=== PATIENT | male | born 1940 | race Caucasian/White ===

== ENCOUNTER → 2022-12-17 01:56 | Outpatient (CLI) | payer OTHER, SELFPAY ==
--- NOTE | 2022-12-17 | DI.CT_ITS ---
Exam(s) CT BRAIN NECK CTA EXAM: CT BRAIN NECK CTA CLINICAL HISTORY: TRANSIENT VISUAL LOSS,? TIA/STROKE. TECHNIQUE: Imaging Protocol: Axial CT angiography was performed with multi-slice acquisition and mu lti-planar and 3D reconstructions. CONTRAST MATERIAL: Intravenous: Omnipaque 350 Contrast volume: 85 ml COMPARISON: No exams were available for comparison FINDINGS: CT Head W/O and W contrast: Ventricles and Extra axial spaces: Normal in size and morphology for the patient's age. Hemorrhage: None. Cerebral parenchyma: Normal. Midline shift: None. Brainstem/Cerebellum: Normal. Calvarium: Normal. Visualized Paranasal sinuses/Mastoids: Clear. Soft Tissues: Unremarkable. Enhancement: Normal. CTA Brain W: Internal Carotid Arteries: Petrous: Normal. Cavernous: Normal. Cerebral: Normal. Middle Cerebral Arteries: Right: No aneurysm, occlusion or significant stenosis. Left: No aneurysm, occlusion or significant stenosis. Anterior Cerebral Arteries: Right: No aneurysm, occlusion or significant stenosis. Left: No aneurysm, occlusion or significant stenosis. Posterior cerebral Arteries: Right: No aneurysm, occlusion or significant stenosis. Left: No aneurysm, occlusion or significant stenosis. Vertebral Arteries: Right: No aneurysm, occlusion or significant stenosis. Left: No aneurysm, occlusion or significant stenosis. Basilar Artery: No aneurysm, occlusion or significant stenosis. CTA Neck W: Common Carotid: Right: No dissection, occlusion or significant stenosis. No significant plaque. Left: No dissection, occlusion or significant stenosis. Minimal plaque at the common carotid bulb. External Carotid: Right: No dissection, occlusion or significant stenosis. Left: No dissection, occlusion or significant stenosis. Internal Carotid: Right: No dissection, occlusion or significant stenosis. Tortuous distally. Left: No dissection, occlusion or significant stenosis. Tortuous distally. Vertebral Artery: Right: No dissection, occlusion or significant stenosis. Left: No dissection, occlusion or significant stenosis. Lung Apices: Normal. Bones: Degenerative disc changes and facet degenerative changes. Soft Tissues: Normal. IMPRESSION: 1. Normal CTA examination of the [place]. 2. Unremarkable CT Head. 3. CTA neck: Minimal plaque at the left common carotid bulb. No significant stenosis. No evidence o f of dissection. RADIATION DOSE DELIVERED: 2,322.97mGy.cm Total DLP DATA REPOSITORY: All CT scans at this facility are submitted to the National Radiology Data Registry (NRDR) Dose Index Registry (DIR) with the [employer] ([employer]). RADIATION OPTIMIZATION: All CT scans at this facility use at least one of these dose optimization te chniques: automated exposure control; mA and/or kV adjustment per patient size (includes targeted exa ms where dose is matched to clinical indication); or iterative reconstruction.
--- NOTE | 2022-12-17 12:32 | DI.RAD_ITS ---
Exam(s) XR SHOULDER RT COMPLETE 2+V EXAM: XR SHOULDER RT COMPLETE 2+V CLINICAL HISTORY: RT SHOULDER PAIN, M25.511. TECHNIQUE: 2D digital imaging was performed of the right shoulder. Three images were obtained. AP and Y views were obtained. COMPARISON: No exams were available for comparison FINDINGS: BONES: No acute fracture is present. No bony destructive lesion is seen. JOINTS: No dislocation present. There are degenerative changes seen at both the glenohumeral and acro mioclavicular joints. There is mild spurring at the undersurface of the acromion. SOFT TISSUE: Normal. IMPRESSION: Degenerative changes of the right shoulder. DATA REPOSITORY: RADIATION DOSE DELIVERED:
[2022-12-17] MEDS: Omnipaque 350 MG/ML 500 ML BTL-Imaging package IJ (12:36)
[2022-12-17] MEDS: Normal Saline - Diluent 50 ML VIAL IJ (12:36)
== END ==
PROVIDERS: Visit Provider Physician Assistant Medical
DX: M19.011 Primary osteoarthritis, right shoulder (principal); H53.123 Transient visual loss, bilateral
CPT/HCPCS: 70496; 70498; 73030

== ENCOUNTER 2023-08-05 14:58 | Emergency (ER) | payer OTHER, SELFPAY ==
[2023-08-05 15:03] VITALS: BP 142/51; PULSE 75; RESP 16; TEMP 36.8; O2SAT 97
--- NOTE | 2023-08-05 17:15 | DI.CT_ITS ---
Exam(s) CT ABDOMEN PELVIS W EXAM: CT ABDOMEN PELVIS W CLINICAL HISTORY: upper abd pain TECHNIQUE: Imaging Protocol: Axial computed tomography images with coronal and sagittal reformatted images were created and reviewed. CONTRAST MATERIAL: Intravenous: Omnipaque 350 Contrast volume:100 mL Oral: No COMPARISON: CT CT BRAIN NECK CTA from 12/17/2022 FINDINGS: ABDOMEN: Lung Bases: Normal where visualized. Liver: Normal density. There is a simple cyst in the left lobe of the liver. No suspicious hepatic m asses are seen. Portal, Superior Mesenteric, and Splenic Veins: Unremarkable. Gallbladder and Biliary Tract: Status post cholecystectomy. No significant biliary ductal dilatation . Pancreas: Normal density, no abnormal calcifications or inflammatory process. Spleen: Normal. Adrenals: No masses seen. Kidneys: Normal size, contour and axis. No radiodense stones or obstructive uropathy. There is a simp le right renal cysts. No follow-up is recommended. Abdominal Aorta: Abdominal portion non-dilated. Atherosclerotic calcification is present. Bowel: There is diverticulosis of the colon without evidence of acute diverticulitis. There is no ev idence of bowel obstruction or bowel wall thickening. No evidence of appendicitis. Peritoneal Cavity: No ascites, collection or mesenteric inflammatory response. No free air. Lymph Nodes: Within normal limits. Bones: Within normal limits for the patient's age. Soft Tissues: Unremarkable. PELVIS: Bladder: Symmetric distention, no gross wall thickening. Reproductive Organs: Prostate gland is mildly enlarged. Lymph Nodes: Within normal limits. Bones: Within normal limits for the patient's age. IMPRESSION: 1. No acute abdominal or pelvic process. 2. Colonic diverticulosis without evidence of acute diverticulitis. 3. Mildly enlarged prostate gland. 4. Status post cholecystectomy. RADIATION DOSE DELIVERED: 1,498.48mGy.cm Total DLP DATA REPOSITORY: All CT scans at this facility are submitted to the National Radiology Data Registry (NRDR) Dose Index Registry (DIR) with the [employer] (ACR). RADIATION OPTIMIZATION: All CT scans at this facility use at least one of these dose optimization te chniques: automated exposure control; mA and/or kV adjustment per patient size (includes targeted exa ms where dose is matched to clinical indication); or iterative reconstruction.
--- NOTE | 2023-08-05 17:35 | ED.GENADUL_ITS ---
Discharge Plan Disposition Patient Disposition: Home Condition: Good Discharge Details Clinical Impression: Intermittent upper abdominal pain Primary Care Provider: Unknown,Unknown ED Provider: Kacey Dougherty Home Meds and New Rx's Prescriptions: No Action losartan 100 MG tablet 100 mg PO DAILY furosemide 20 MG tablet 40 mg PO QAM omeprazole 40 MG capsule,delayed release(DR/EC) 40 mg PO DAILY calcium carbonate 500 mg calcium (1,250 mg) tablet,chewable 500 mg PO DAILY potassium chloride [Klor-Con 10] 10 mEq tablet extended release 10 meq PO TID finasteride [Proscar] 5 mg tablet 5 mg PO DAILY aspirin [Adult Aspirin Regimen] 81 mg tablet,delayed release (DR/EC) 81 mg PO DAILY rosuvastatin [Crestor] 20 mg tablet 20 mg PO DAILY albuterol 90 mcg/actuation aerosol 200 mcg inhalation Q6H PRN PRN Discharge Instructions Additional Instructions: Please call your primary care provider first thing in the morning to schedule follow-up appointment. Telehealth visit is okay. Your workup today was reassuring, all labs and abdominal CT reassuring. Continue taking all your medications as prescribed Return to emergency care if you develop new chest pain, shortness of breath, nausea/vomiting, abdominal pain, or if you are worried and need to be rechecked again immediately HPI General Date/Time Provider Initiated Documentation: 08/05/23 17:19 . HPI Narrative: Anmol is an 82-year-old male who [facility] who [facility] emergency department today for evaluation of upper abdominal pain. He reports that he had sudden sharp pain this morning when he sneezed, said it radiated from his left upper quadrant to his right upper quadrant. He says that this pain has been ongoing for some time, comes and goes every couple of days. He says it is worsened with sitting up or when he lays on his left side. He says he has mentioned this to his doctor before, but was told it was nothing important. He is worried because he has not had his yearly CT scans of his chest since last year, is worried something might be going on. He denies recent fever/chills, chest pain, shortness of breath, change in baseline cough, change in p.o. intake, acid reflux, change in bowel or bladder function. He does have a history of abdominal surgery, had gallbladder removed. Denies history of diabetes or significant digestive disorders. He says he has had colonoscopies and endoscopies in the past, no known acute findings. Related Data Home Medications Medication Instructions Recorded Confirmed furosemide 20 mg tablet 40 mg PO QAM 11/04/13 08/05/23 losartan 100 mg tablet 100 mg PO DAILY 11/04/13 08/05/23 omeprazole 40 mg capsule,delayed 40 mg PO DAILY 11/04/13 08/05/23 release albuterol 90 mcg/actuation aerosol 200 mcg inhalation Q6H PRN PRN 08/05/23 08/05/23 inhaler aspirin 81 mg tablet,delayed 81 mg PO DAILY 08/05/23 08/05/23 release (Adult Aspirin Regimen) calcium carbonate 500 mg PO DAILY 08/05/23 08/05/23 finasteride 5 mg tablet (Proscar) 5 mg PO DAILY 08/05/23 08/05/23 potassium chloride 10 mEq 10 meq PO TID 08/05/23 08/05/23 tablet,extended release (Klor-Con) rosuvastatin 20 mg tablet (Crestor) 20 mg PO DAILY 08/05/23 08/05/23 Allergies Allergy/AdvReac Type Severity Reaction Status Date / Time Sulfa (Sulfonamide Allergy Mild Skin Rash Unverified 08/05/23 18:20 Antibiotics) General Stated Complaint: Abd Prob EMILY: 3 Review of Systems Narrative: see HPI Exam Const General: cooperative, healthy appearing, comfortable, no acute distress, well developed and well groomed Nutritional Appearance: average body habitus Chest Chest: normal inspection of the chest, normal palpation of entire chest wall, no crepitus and no localized rib tenderness Resp Effort & Inspection: normal respiratory effort and able to speak in complete sentences Auscultation: clear to auscultation bilaterally Cardio Jugular venous pressure: no JVD Rate: regular rate Rhythm: regular rhythm GI Inspection: normal to inspection, no edema, non-distended and scar (RUQ) Palpation: soft, not rigid and nontender Auscultation: normal bowel sounds Skin General skin exam: no rashes or lesions noted Course Vital Signs Vital signs: Vital Signs Temperature 36.8 C 08/05/23 15:03 Pulse 75 08/05/23 15:03 Respiratory Rate 16 08/05/23 15:03 Blood Pressure 142/51 H 08/05/23 15:03 Pulse Oximetry 97 05/06/24 15:03 Temperature 36.8 C 08/05/23 15:03 Temperature Source Tympanic 08/05/23 15:03 Pulse 75 08/05/23 15:03 Respiratory Rate 16 08/05/23 15:03 Blood Pressure 142/51 H 08/05/23 15:03 Blood Pressure Position Sitting 08/05/23 15:03 Pulse Oximetry 97 08/05/23 15:03 Oxygen Delivery Method Room Air 08/05/23 15:03 Oxygen Flow Rate 0 08/05/23 15:03 Pain Level 4 08/05/23 15:03 Medical Decision Making Anmol is an 82-year-old male who is a patient of the [facility] who presents to the emergency department today for evaluation of upper abdominal pain. He reports that he had sudden sharp pain this morning when he sneezed, said it radiated from his left upper quadrant to his right upper quadrant. He says that this pain has been ongoing for some time, comes and goes every couple of days. He says it is worsened with sitting up or when he lays on his left side. He says he has mentioned this to his doctor before, but was told it was nothing important. He is worried because he has not had his yearly CT scans of his chest since last year, is worried something might be going on. He denies recent fever/chills, chest pain, shortness of breath, change in baseline cough, change in p.o. intake, acid reflux, change in bowel or bladder function. He does have a history of abdominal surgery, had gallbladder removed. Denies history of diabetes or significant digestive disorders. He says he has had colonoscopies and endoscopies in the past, no known acute findings. Physical exam reassuring. Patient is alert and oriented, no acute distress. Abdomen is soft, nondistended, nontender to palpation with normal active bowel sounds. Unable to elicit pain with palpation. No rigidity or guarding. Easy work of breathing, lung sounds clear bilaterally. Normal heart sounds. DDx includes but is not limited to: Rib pain, gastritis, pancreatitis, GERD, splenomegaly, liver abscess, lower lobe pneumonia less likely, musculoskeletal pain. No red flags and history concerning for ACS based on triggers and timeline. I independently interpreted the following tests: CBC and CMP reassuring. CT abdomen/pelvis unremarkable, no acute findings noted. Overall workup today very reassuring. Unclear etiology of discomfort, likely musculoskeletal. Advise follow-up with PCP for further evaluation. Reviewed red flags indicate need for return to emergency care. Imaging Data Radiologic Study: Radiologist's impression: Exam(s) CT ABDOMEN PELVIS W EXAM: CT ABDOMEN PELVIS W CLINICAL HISTORY: upper abd pain TECHNIQUE: Imaging Protocol: Axial computed tomography images with coronal and sagittal reformatted images were created and reviewed. CONTRAST MATERIAL: Intravenous: Omnipaque 350 Contrast volume:100 mL Oral: No COMPARISON: CT CT BRAIN NECK CTA from 12/17/2022 FINDINGS: ABDOMEN: Lung Bases: Normal where visualized. Liver: Normal density. There is a simple cyst in the left lobe of the liver. No suspicious hepatic masses are seen. Portal, Superior Mesenteric, and Splenic Veins: Unremarkable. Gallbladder and Biliary Tract: Status post cholecystectomy. No significant biliary ductal dilatation. Pancreas: Normal density, no abnormal calcifications or inflammatory process. Spleen: Normal. Adrenals: No masses seen. Kidneys: Normal size, contour and axis. No radiodense stones or obstructive uropathy. There is a simple right renal cysts. No follow-up is recommended. Abdominal Aorta: Abdominal portion non-dilated. Atherosclerotic calcification is present. Bowel: There is diverticulosis of the colon without evidence of acute diverticulitis. There is no evidence of bowel obstruction or bowel wall thickening. No evidence of appendicitis. Peritoneal Cavity: No ascites, collection or mesenteric inflammatory response. No free air. Lymph Nodes: Within normal limits. Bones: Within normal limits for the patient's age. Soft Tissues: Unremarkable. PELVIS: Bladder: Symmetric distention, no gross wall thickening. Reproductive Organs: Prostate gland is mildly enlarged. Lymph Nodes: Within normal limits. Bones: Within normal limits for the patient's age. IMPRESSION: 1. No acute abdominal or pelvic process. 2. Colonic diverticulosis without evidence of acute diverticulitis. 3. Mildly enlarged prostate gland. 4. Status post cholecystectomy. Quality:SDOH Health Related Social Needs: No Data to Display PFSH All Active Problems (Updated 08/05/23 @ 19:19 by Kacey Mancilla) Intermittent upper abdominal pain (Acute) Social History Smoking/Tobacco Use Status: Never Smoking risk assessment performed?: Yes Drug use: Never Housing: house Do you feel safe at home: Yes Do you feel safe in your relationship?: Yes
[2023-08-05 17:54] VITALS: BP 142/51; PULSE 75; RESP 16; TEMP 36.8; O2SAT 97
[2023-08-05 17:58] LABS: Abs Immature Grans 0.02 10^3/uL (0.0-0.06); Absolute Basophil Count 0.03 10^3/uL (0.0-0.2); Absolute Eosinophil Count 0.11 10^3/uL (0.0-0.7); Absolute Lymphocyte Count 1.34 10^3/uL (1.2-3.4); Absolute Monocyte Count 0.67 10^3/uL (0.1-0.8); Absolute Neutrophil Count 5.13 10^3/uL (1.2-6.7); Basophils % 0.4 %; Eosinophils % 1.5 %; HGB 15.5 g/dL (13.5-17.5); Immature Grans % 0.3 %; Lymphocytes % 18.4 %; MCH 31.2 pg (27.0-33.0); MCHC 33.7 % (32.0-36.0); MCV 93 fL (80-95); MPV 9.6 fL (8.0-11.0); Monocytes % 9.2 %; Neutrophils % 70.2 %; Platelet Count 182 10^3/uL (130-400); RBC 4.97 10^6/uL (4.36-5.78); RDW 13.1 % (11.8-14.1); RDW-SD 44.2 fL
[2023-08-05 18:12] LABS: ALT 27 U/L (16-63); AST 15 U/L (15-37); Albumin 3.5 g/dL (3.4-5.0); Alkaline Phosphatase 82 U/L (46-116); Anion Gap 9.5 mmol/L (3-11); BUN 21 mg/dL (7-18); Bilirubin, Total 0.5 mg/dL (0.2-1.0); CO2 27.5 mmol/L (21.0-32.0); CREATININE 1.3 mg/dL (0.70-1.30); Calcium 8.8 mg/dL (8.5-10.1); Chloride 106 mmol/L (98-107); Estimated GFR 54.51 (mL/min/1.73m2); Glucose 96 mg/dL (74-106); Magnesium 2.1 mg/dL (1.8-2.4); Potassium 3.9 mmol/L (3.5-5.1); Sodium 143 mmol/L (136-145); Total Protein 7.1 g/dL (6.4-8.2)
[2023-08-05] MEDS: Normal Saline - Diluent 50 ML VIAL IJ (18:21)
[2023-08-05] MEDS: Omnipaque 350 MG/ML 100 ML BTL IJ (18:22)
[2023-08-05 18:43] VITALS: BP 195/70; PULSE 75; RESP 16; O2SAT 98
[2023-08-05 19:26] VITALS: BP 138/60; PULSE 72; RESP 16; O2SAT 99
[2023-08-05 19:27] VITALS: RESP 16; O2SAT 98
== END 2023-08-05 19:27 | disposition home or self-care (01) ==
PROVIDERS: Emergency Provider Nurse Practitioner Family
DX: R10.11 Right upper quadrant pain (principal); R10.12 Left upper quadrant pain; K57.30 Diverticulosis of large intestine without perforation or abscess without bleeding
CPT/HCPCS: 80053; 99285; 74177; 83735; 85025; 99283; J3490

== ENCOUNTER 2024-04-08 15:53 | Outpatient (CLI) | payer OTHER, SELFPAY ==
--- NOTE | 2024-04-08 09:00 | DI.RAD_ITS ---
Exam(s) XR SHOULDER RT COMPLETE 2+V EXAM: XR SHOULDER RT COMPLETE 2+V CLINICAL HISTORY: BILATERAL SHOULDER PAIN. TECHNIQUE: 2D digital imaging was performed of the right shoulder. Two images were obtained. Grash ey and axillary views were obtained. COMPARISON: CR XR SHOULDER RT COMPLETE 2+V from 12/17/2022 FINDINGS: This is a limited examination. BONES: No acute fracture is present. No bony destructive lesion is seen. JOINTS: No dislocation present. There are mild degenerative changes seen at both the acromioclavicula r and glenohumeral joints. There is mild spurring at the lateral aspect of the acromion. There also appears to be mild narrowing of the acromial humeral interval. SOFT TISSUE: Calcification is seen above the head of the humerus suggesting calcific tendinitis. IMPRESSION: Degenerative changes of the right shoulder as described above. DATA REPOSITORY: RADIATION DOSE DELIVERED:
--- NOTE | 2024-04-08 09:00 | DI.RAD_ITS ---
Exam(s) XR SHOULDER LT COMPLETE 2+V EXAM: XR SHOULDER LT COMPLETE 2+V CLINICAL HISTORY: BILATERAL SHOULDER PAIN. TECHNIQUE: 2D digital imaging was performed of the left shoulder. Two images were obtained. Axilla ry and Grashey views were obtained. COMPARISON: No exams were available for comparison FINDINGS: This is a limited examination. BONES: No acute fracture is present. No bony destructive lesion is seen. JOINTS: No dislocation present. There are mild degenerative changes seen at the acromioclavicular lora nt. The glenohumeral joint is well maintained. SOFT TISSUE: Normal. IMPRESSION: Mild degenerative changes seen at the acromioclavicular joint. DATA REPOSITORY: RADIATION DOSE DELIVERED:
== END 2024-04-08 15:54 | disposition home or self-care (01) ==
LOC: DIORS 15:53
PROVIDERS: PCP Internal Medicine; Visit Provider Student in an Organized Health Care Education/Training Program
DX: M19.011 Primary osteoarthritis, right shoulder (principal); M19.012 Primary osteoarthritis, left shoulder
CPT/HCPCS: 73030

== ENCOUNTER 2024-04-13 15:16 | Outpatient (CLI) | payer OTHER, SELFPAY ==
--- NOTE | 2024-04-13 10:00 | DI.RAD_ITS ---
Exam(s) XR KNEE RT 4V AP,LAT,CHETNA,PAT EXAM: XR KNEE RT 4V AP,LAT,CHETNA,PAT CLINICAL HISTORY: RIGHT KNEE PAIN. TECHNIQUE: 2D digital imaging was performed of the right knee. Four views obtained. Merchant, AP, la teral and PA tunnel views were obtained. COMPARISON: No exams were available for comparison FINDINGS: BONES: No acute fracture is present. No bony destructive lesion is seen. JOINTS: There is mild spurring of the posterior patella. The joint spaces are otherwise well [place]. No joint effusion is seen. There is a triangular-shaped osseous density anterior to the lateral tibial spine. SOFT TISSUE: Normal. IMPRESSION: Minimal degenerative changes and a loose body. DATA REPOSITORY: RADIATION DOSE DELIVERED:
== END 2024-04-13 15:17 | disposition home or self-care (01) ==
LOC: DIORS 15:16
PROVIDERS: PCP Internal Medicine; Visit Provider Physician Assistant
DX: M25.561 Pain in right knee (principal)
CPT/HCPCS: 73564

== ENCOUNTER 2025-01-04 02:42 | Outpatient (CLI) | payer OTHER, SELFPAY ==
--- NOTE | 2025-01-04 11:26 | DI.RAD_ITS ---
Exam(s) XR CHEST 2V PA LATERAL EXAM: XR CHEST 2V PA LATERAL CLINICAL HISTORY: SC#[id number] DYSPNEA R06.00 TECHNIQUE: 2D digital imaging was performed of the chest. Two images were obtained. PA and lateral views were obtained. COMPARISON: No exams were available for comparison FINDINGS: MEDIASTINUM: Normal. HEART: Normal. PULMONARY VASCULATURE: Normal. LUNGS: There are no focal consolidating infiltrates. PLEURAL SPACE: No pleural effusion or pneumothorax. BONE:Within normal limits for the patient's age. OTHER FINDINGS:Normal. IMPRESSION: No acute pulmonary findings. DATA REPOSITORY: RADIATION DOSE DELIVERED:
== END 2025-01-04 03:02 ==
PROVIDERS: PCP Internal Medicine; Visit Provider Internal Medicine
DX: R06.00 Dyspnea, unspecified (principal)
CPT/HCPCS: 71046